=== PATIENT | male | born 1945 | race Caucasian/White ===

== ENCOUNTER → 2025-04-06 10:56 | Outpatient (REF) | payer OTHER, SELFPAY | LOC: HWRCS 10:56 | PROVIDERS: ATTENDING PHYSICIAN Internal Medicine Cardiovascular Disease; FAMILY PHYSICIAN Family Medicine | DX: I35.0 Nonrheumatic aortic (valve) stenosis (principal); I07.1 Rheumatic tricuspid insufficiency; I48.21 Permanent atrial fibrillation; I31.39 Other pericardial effusion (noninflammatory) | CPT/HCPCS: 93306 ==

== ENCOUNTER → 2025-04-21 10:02 | Outpatient (REF) | payer OTHER, SELFPAY | LOC: RAD 10:02 | PROVIDERS: ATTENDING PHYSICIAN Internal Medicine Cardiovascular Disease | DX: I35.0 Nonrheumatic aortic (valve) stenosis (principal); I48.21 Permanent atrial fibrillation; I31.39 Other pericardial effusion (noninflammatory); I73.9 Peripheral vascular disease, unspecified; I07.1 Rheumatic tricuspid insufficiency | CPT/HCPCS: 74174; 75572; Q9967 ==

== ENCOUNTER 2025-04-26 05:55 | Day surgery (SDC) | payer OTHER, SELFPAY ==
[2025-04-06 13:15] VITALS: BMI 30.9
[2025-04-06 13:41] LABS: Hematocrit 38.8 % (39.0-52.0); Hemoglobin 13.4 g/dL (13.0-18.0); Mean Corp Hgb Conc. 34.5 g/dL (33.0-37.0); Mean Corpuscular Volume 92.4 fL (80.0-94.0); Nucleated Red Blood Cells % 0 % (-); Platelet Count 132 10^3/uL (130-400); Red Cell Dist. Width 13.2 % (11.5-14.5)
[2025-04-06 14:44] LABS: ALT (SGPT) 24 U/L (0-50); AST (SGOT) 22 U/L (17-59); Albumin 4.4 g/dl (3.5-5.0); Alkaline Phosphatase 95 U/L (38-126); Blood Urea Nitrogen 18 mg/dl (9-20); Calcium 9.5 mg/dl (8.4-10.2); Carbon Dioxide 30 mmol/L (22-30); Chloride 98 mmol/L (98-107); Estimated Creatinine Clearance 59 ml/min; Glucose 143 mg/dl (70-99); Potassium 3.8 mmol/L (3.5-5.1); Sodium 134 mmol/L (135-145); Total Protein 7.2 g/dl (6.3-8.2); eGFR > 60.00
[2025-04-07 14:18] LABS: Glycohemoglobin (HgbA1c) 5.9 % (4.0-5.9)
[2025-04-26] VITALS (11 sets, daily range): BP systolic 107–156; BP diastolic 58–95; BMI 30.8
[2025-04-26] MEDS: NSS 309 ML IV (06:45)
[2025-04-26 06:50] LABS: Glucose - Point of Care 108 mg/dl (70-99)
--- NOTE | 2025-04-26 08:53 | ITS.CL.CATH ---
Cardiovascular Physician Assistant - Catheterization
Cardiac Catheterization
Procedure Report:
CARDIAC CATHETERIZATION REPORT
Date of Procedure: 04/26/2025
Referring: Bimal Elizalde D.O.
Indication: Severe, symptomatic aortic valve stenosis.
PROCEDURE:
1. Right heart catheterization.
2. Coronary angiography.
3. Successful IFR of the proximal LAD.
A total of 0 minutes of procedural/moderate sedation was utilized. An independent durable medical equipment technician was present to assist with and help manage the patient's level of consciousness and physiologic status.
ACCESS:
1. 6 Indonesian right radial artery using a modified Seldinger technique.
2. 5 Indonesian right antecubital vein using a previously placed IV.
CATHETERS:
1. 5 Indonesian balloon wedge.
2. 5 Indonesian JL 3.5.
3. 5 Indonesian JR4.
4. 6 Indonesian EBU 3.5 guiding catheter.
HEMODYNAMIC DATA
Weight (kg): 103.0
AO (s/d/x, mmHg): 125/66/94
LV (s/x, mmHg): Not obtained.
PCWP (a/v/x, mmHg): 26/45/25
PA (s/d/x, mmHg): 58/25/36
RV (s/x, mmHg): 58/12
RA (a/v/x, mmHg): 14/14/12
SVC SvO2 (%): 62.8
IVC SvO2 (%): Not obtained.
RA SvO2 (%): Not obtained.
RV SvO2 (%): Not obtained.
PA SvO2 (%): 62.3
SaO2 (%): 89.2
Hbg (g/dL): 12.8
TERELL
CO (L/min): 6.00
CI (L/min/m2): 2.67
Thermodilution
CO (L/min): Not performed.
CI (L/min/m2): Not performed.
TPG (mmHg): 11
PVR (Malave Units): 1.83
SVR (dynes*seconds*cm^-5): 1093
AVO2 Diff (Volume %): 4.68
Cardiac Power Output (edwards): 1.25 (MAP * CO)/451 (normal 0.5 - 0.7; 0.4 - 0.6 in the elderly)
Cardiac Power Index (edwards/m2): 0.56 (MAP * CI)/451
Linden: 2.75 (PAs-PAd)/RA
AV gradient (x, mmHg): Not obtained.
AV area (cm2): Not obtained.
MV gradient (x, mmHg): Not obtained.
MV area (cm2): Not obtained.
LEFT VENTRICULOGRAPHY: Not performed.
AORTOGRAPHY: Not performed.
CORONARY ANGIOGRAPHY
Dominance: Right.
Left Main: Large size, bifurcating vessel. There is no coronary artery disease.
LAD: Large size vessel giving rise to 1 large diagonal before wrapping around the apex and supplying the distal inferior wall. There is a 70% lesion in the proximal vessel spanning the origin of the first diagonal. There is an 80% lesion
in the proximal margin of the first diagonal that spares the ostium.
Ramus: Congenitally absent.
Circumflex: Normal size, nondominant vessel giving rise to 2 obtuse marginals. OM1 arises very high off of the circumflex. It is a small to medium size vessel. There is a 90% lesion in the proximal margin that includes the origin of the
vessel. OM 2 is a more substantial vessel with a densely calcified 85% lesion in its midportion.
RCA: Large size, dominant vessel with a large posterolateral arcade. There is minor tapering in the ostium of the RCA. The RPDA is a small, diffusely diseased vessel.
INTERVENTIONS
1. Successful IFR of the 70% proximal LAD lesion, demonstrating occlusive coronary artery disease (IFR = 0.77).
Narrative:
The decision was made to perform physiologic testing. The diagnostic catheter was removed over a wire and exchanged for a(n) 6 Indonesian EBU 3.5 guiding catheter. The guiding catheter was advanced into the ascending aorta and seated in the left main
coronary artery. Additional heparin was given to obtain an ACT greater than 250 seconds. An iFR wire was zeroed outside of the body, then inserted into the guiding sheath. The wire was advanced and the transducer was normalized just outside of the
guiding catheter tip. The wire was advanced into the mid LAD, beyond the 70% proximal LAD lesion. Three iFR measurements were taken. The lesion was determined to be occlusive (0.77). The IFR wire was pulled back, demonstrating fidelity of
measurement. Final angiography was performed demonstrating stable coronary anatomy.
Closure Device: Vascular band for the right radial artery, manual pressure for the right antecubital vein.
Radiation dose (mGy): 499
DAP (cm2.Gy): 25.4
Fluoroscopy time (minutes): 4.7
CONCLUSIONS:
1. Right dominant circulation with mild tapering of the ostium of the RCA, a small, diffusely diseased RPDA, and 90% lesion in a small to medium size OM1, a densely calcified 85% lesion in the midportion of the larger OM 2, and 80% lesion in the
proximal margin of the first diagonal that spares its ostium and an occlusive 70% lesion in the proximal LAD that spans the origin of the first diagonal (iFR = 0.77).
2. Severely elevated filling pressures (PCWP = 25 mmHg at 103 kg) with large V waves (45 mmHg) suggestive of noncompliant left atrium versus underappreciated component of mitral regurgitation.
3. Moderate, postcapillary pulmonary hypertension (mean PA = 36 mmHg, PCWP = 25 mmHg, cardiac output = 6.00 L/min, PVR = 1.83 Malave units), consistent with WHO group 2.
4. Normal cardiac performance measurements (cardiac index = 2.67 L/min/m�, a VO2 difference = 4.68 volume%, cardiac power output = 1.25 W, Linden = 2.75).
5. Severe aortic valve stenosis on echocardiography. Mild mitral regurgitation on echocardiography.
RECOMMENDATIONS:
1. Expectant management after cardiac catheterization via right radial approach.
2. Limited weight bearing on the right for one week.
3. Consultation with CT surgery regarding optimal strategy for revascularization and valve replacement. The patient has reasonable surgical targets but is definitely a candidate for PCI. There is significant, dense calcification with bifurcation
disease in the proximal LAD with concomitant severe aortic valve stenosis prompting multidisciplinary consideration.
4. Start furosemide 40 mg p.o. daily in light of severe elevation of filling pressures. BMP in 1 week to monitor renal function and potassium levels after initiation of diuresis.
Copy to: Bimal Elizalde D.O., Megha Laird M.D.
Ian Castillo DO, FACC, FACP
[2025-04-26 09:07] LABS: Glucose - Point of Care 102 mg/dl (70-99)
[2025-04-26] MEDS: NSS 1000 IV (09:15)
[2025-04-26 09:30] LABS: ACT-LR - POC > 397 Seconds (116-155)
== END 2025-04-26 12:29 | disposition home or self-care (01) ==
LOC: CATH 05:55
PROVIDERS: ATTENDING PHYSICIAN Internal Medicine Cardiovascular Disease; FAMILY PHYSICIAN Family Medicine; OTHER PHYSICIAN Internal Medicine Cardiovascular Disease
DX: I25.10 Atherosclerotic heart disease of native coronary artery without angina pectoris (principal); I08.3 Combined rheumatic disorders of mitral, aortic and tricuspid valves; E11.51 Type 2 diabetes mellitus with diabetic peripheral angiopathy without gangrene; E78.5 Hyperlipidemia, unspecified; I10 Essential (primary) hypertension; I27.20 Pulmonary hypertension, unspecified; I48.21 Permanent atrial fibrillation; I70.0 Atherosclerosis of aorta; M10.9 Gout, unspecified; N40.0 Benign prostatic hyperplasia without lower urinary tract symptoms; Q21.10 Atrial septal defect, unspecified; Z87.891 Personal history of nicotine dependence; Z79.01 Long term (current) use of anticoagulants; Z79.84 Long term (current) use of oral hypoglycemic drugs; Z79.899 Other long term (current) drug therapy; E66.9 Obesity, unspecified; Z80.9 Family history of malignant neoplasm, unspecified
CPT/HCPCS: 93799; 36415; 80053; 82962; 83036; 85025; 85347; 93005; 93456; C1769; C1894; Q9967